=== PATIENT | male | born 1955 | race Caucasian/White ===

== ENCOUNTER 2016-10-20 12:45 | Emergency (ER) | payer OTHER ==
[~2016-10-20] VITALS: Ht 172.7 cm; Wt 73.0 kg
[~2016-10-20 12:45] MED LIST: IBUP-1542 PO; ULT50 PO
[2016-10-20 12:54] VITALS: Ht 172.7 cm; Wt 73.0 kg
[2016-10-20] MEDS ORDERED: IBUP-1542 PO (15:04)
--- NOTE | 2016-10-20 15:11 | ERD ---
ER Documentation Chief Complaint Date/Time DATE: 10/20/16 TIME: 15:05 Chief Complaint LEFT BIG TOE INJURY DUE TO TRAUMA HPI Patient is a 60-year-old male who presents to the emergency department with left big toe pain status post trauma. Patient states yesterday he was moving a table when he accidentally backed it into his left big toe. Patient states that part of this toenail did broke off. She reports minimal bleeding which is now resolved. Patient reports previous history of trauma and toenail removal to affected extremity. Patient states his current pain level is a 6 out of 10, his pain is worse with movement. Patient states that he did take ibuprofen last at which did alleviate his pain. Patient is able to ambulate without any difficulty. Patient denies any numbness, tingling, fever, chills, nausea, vomiting, chest pain, shortness of breath. ROS All systems reviewed and are negative except as per history of present illness. Medications Home Meds Active Scripts Ibuprofen* (Ibuprofen*) 600 Mg Tablet, 600 MG PO Q6, #20 TAB Prov:CAITLYN JON PA-C 10/20/16 Ibuprofen* (Motrin*) 600 Mg Tab, 600 MG PO Q6H Y for PAIN AND OR ELEVATED TEMP, #30 TAB Prov:[facility] 12/01/15 Tramadol HCl (Tramadol HCl) 50 Mg Tab, 50 MG PO Q6 Y for PAIN, #20 TAB Prov:ANABELLE BERNAL 04/02/15 Allergies Allergies: Coded Allergies: Penicillins (Verified Allergy, Intermediate, RASH, 10/20/16) PMhx/Soc History of Surgery: Yes (Inguinal Hernia Repair) Anesthesia Reaction: No Hx Neurological Disorder: No Hx Respiratory Disorders: No Hx Cardiac Disorders: Yes (CAD, HTN) Hx Psychiatric Problems: Yes (DEPRESSION) Hx Miscellaneous Medical Probl: No Hx Alcohol Use: Yes ("CLEAN AND SOBER 9 YEARS") Hx Substance Use: No Hx Tobacco Use: Yes (30 CIGS/DAY) Smoking Status: Current every day smoker FmHx Family History: No diabetes Physical Exam Vitals Vital Signs Date Time Temp Pulse Resp B/P Pulse Ox O2 Delivery O2 Flow Rate FiO2 10/20/16 16:33 97.9 84 20 118/62 98 Room Air 10/20/16 12:54 98.1 66 18 121/68 98 Physical Exam GENERAL: Well-developed, well-nourished male. Appears in no acute distress. HEAD: Normocephalic, atraumatic. EYES: Pupils are equally reactive bilaterally. EOMs grossly intact. No conjunctival erythema. ENT: Moist mucous membranes. No uvula deviation. No kissing tonsils. NECK: Supple. No lymphadenopathy or thyromegaly. No meningismus. LUNG: Clear to auscultation bilaterally. No rhonchi, wheezing, rales or coarse breath sounds. HEART: Regular rate and rhythm. No murmurs, rubs or gallops. EXTREMITIES: Equal pulses bilaterally. No peripheral clubbing, cyanosis or edema. No unilateral leg swelling. NEUROLOGIC: Alert and oriented. Moving all four extremities without any difficulty. Normal speech. Steady gait. SKIN: Normal color. Warm and dry. No rashes or lesions. LEFT FOOT: No deformity, erythema, ecchymosis. Minimal swelling of left big toe. Skin intact. Full ROM of all toes, ankle and knee. No crepitus. Tender to palpation of distal aspect of the toe. Non tender to palpation of mid foot, ankle, calf or knee. Sensation intact to light touch. Neurovascularly intact. ( Able to plantarflex, dorsiflex, myah foot, invert foot, raise big toe.) 2+ DP and DT pulses. Big toenail broken off, proximal aspect intact. No bleeding or discharge noted. Procedures/MDM ED COURSE: The patient was stable throughout ED course. I kept the patient and/or family informed of laboratory and diagnostic imaging results throughout the ED course. DIAGNOSTIC IMAGING: Read by radiologist. DIAGNOSTIC IMAGING REPORT Patient: ROGELIO NGUYEN : 1955 Age: 60 Sex: M MR #: [id number] DOS: 10/20/16 1503 Ordering MD: CAITLYN JON PA-C Location: [facility] Room/Bed: PROCEDURE: XR Left foot. CLINICAL INDICATION: Left foot pain, great toe TECHNIQUE: Three views of the left foot were obtained. COMPARISON: No prior studies are available for comparison. FINDINGS: There is no acute fracture or dislocation. Alignment is normal. Mild degenerative changes at the first metatarsophalangeal joint are noted. Visualized soft tissues are grossly unremarkable. IMPRESSION: 1. No radiographic evidence of acute osseous abnormality. 2. Mild degenerative changes at the first metatarsophalangeal joint. RPTAT: UU .Tay Guerra MD, MD Date Time Electronically viewed and signed by .Tay Guerra MD, on 10/20/2016 15: 41 .K/ CC: CAITLYN JON PA-C MEDICAL DECISION MAKING: This is a 60-year-old male presents with left big toe pain status post accidentally hitting it with a table while moving. Vital signs were reviewed. Patient was afebrile. Xrays showed no radiographic evidence of acute osseous abnormality. Mild degenerative changes at the first metatarsophalangeal joint. Given these findings, the patients presentation is most consistent with toe contusion vs mild degenerative changes of first MTP joint. I have a much lower clinical concern for ankle fracture, tarsal bone fracture, metatarsal fracture, phalangeal fracture, stress fracture, lisfranc injury, gout, septic joint, DVT, compartment syndrome, plantar fasciitis, diabetic neuropathy. At this time, unable to rule out any tendon and ligament injuries. Patient will need to see an industrial training specialist for further management if his pain persists. Patient will need to see a plate conditioner for toe nail removal. PRESCRIPTIONS: Ibuprofen DISCHARGE: At this time, patient is stable for discharge and outpatient management. RICE therapy and ROM exercises were advised to avoid stiffness. I have instructed the patient to follow-up with his/her primary care physician in 1-2 days. I have discussed with the patient the possibility of needing to see an industrial training specialist for further workup and imaging if the pain persists. I have instructed the patient to promptly return to the ER for any new or worsening symptoms including increased pain, swelling, redness, warmth or fever. The patient and/or family expressed understanding of and agreement with this plan. All questions were answered. Home care instructions were provided. Departure Diagnosis: Primary Impression: Injury of toe Encounter type: initial encounter Laterality: left Qualified Code: S99.922A - Injury of toe, left, initial encounter Condition: Stable Patient Instructions: Sprain Toe Referrals: DOCTOR,NOT ON STAFF (PCP) COMM[facility] YOU HAVE RECEIVED A MEDICAL SCREENING EXAM AND THE RESULTS INDICATE THAT YOU DO NOT HAVE A CONDITION THAT REQUIRES URGENT TREATMENT IN THE EMERGENCY DEPARTMENT. FURTHER EVALUATION AND TREATMENT OF YOUR CONDITION CAN WAIT UNTIL YOU ARE SEEN IN YOUR DOCTORS OFFICE WITHIN THE NEXT 1-2 DAYS. IT IS YOUR RESPONSIBILITY TO MAKE AN APPOINTMENT FOR FOLOW-UP CARE. IF YOU HAVE A PRIMARY DOCTOR --you should call your primary doctor and schedule an appointment IF YOU DO NOT HAVE A PRIMARY DOCTOR YOU CAN CALL OUR PHYSICIAN REFERRAL HOTLINE AT IF YOU CAN NOT AFFORD TO SEE A PHYSICIAN YOU CAN CHOSE FROM THE FOLLOWING [facility] [address] [facility]. [facility] [address] [facility]. [facility] [address] [facility] [facility] [address] [facility] [facility] [address] [facility]. [facility] [address] [facility]. [facility] YOU HAVE RECEIVED A MEDICAL SCREENING EXAM AND THE RESULTS INDICATE THAT YOU DO NOT HAVE A CONDITION THAT REQUIRES URGENT TREATMENT IN THE EMERGENCY DEPARTMENT. FURTHER EVALUATION AND TREATMENT OF YOUR CONDITION CAN WAIT UNTIL YOU ARE SEEN IN YOUR DOCTORS OFFICE WITHIN THE NEXT 1-2 DAYS. IT IS YOUR RESPONSIBILITY TO MAKE AN APPOINTMENT FOR FOLOW-UP CARE. IF YOU HAVE A PRIMARY DOCTOR --you should call your primary doctor and schedule and appointment IF YOU DO NOT HAVE A PRIMARY DOCTOR YOU CAN CALL OUR PHYSICIAN REFERRAL HOTLINE AT . IF YOU CAN NOT AFFORD TO SEE A PHYSICIAN YOU CAN CHOSE FROM THE FOLLOWING [facility] INSTITUTIONS: [facility] [address] [place] [address] [facility] [address] [place] [address] [facility] [address] [place] [address] [facility] Hours: Mon-Fri 9:00 AM - 5:00 PM Additional Instructions: Call your primary care doctor TOMORROW for an appointment during the next 1-2 days.See the doctor sooner or return here if your condition worsens before your appointment time. CAITLYN JON PA-C Oct 20, 2016 15:11
--- NOTE | 2016-10-20 15:41 | RADRPT ---
PROCEDURE: XR Left foot. CLINICAL INDICATION: Left foot pain, great toe TECHNIQUE: Three views of the left foot were obtained. COMPARISON: No prior studies are available for comparison. FINDINGS: There is no acute fracture or dislocation. Alignment is normal. Mild degenerative changes at the first metatarsophalangeal joint are noted. Visualized soft tissues are grossly unremarkable. IMPRESSION: 1. No radiographic evidence of acute osseous abnormality. 2. Mild degenerative changes at the first metatarsophalangeal joint. RPTAT: UU .Tay Guerra MD, MD Date Time Electronically viewed and signed by .Tay Guerra MD, on 10/20/2016 15:41 .K/
[2016-10-20 16:33] VITALS: BP 118/62; PULSE 84; RESP 20; TEMP 97.9
== END 2016-10-20 16:27 | disposition home or self-care (01) ==
LOC: FTE 12:45
DX: S99.922A Unspecified injury of left foot, initial encounter (principal); F17.210 Nicotine dependence, cigarettes, uncomplicated; I10 Essential (primary) hypertension; I25.10 Atherosclerotic heart disease of native coronary artery without angina pectoris; W22.03XA Walked into furniture, initial encounter; Y92.9 Unspecified place or not applicable
CPT/HCPCS: 73630; Z7502

== ENCOUNTER 2016-10-28 12:33 | Emergency (ER) | payer OTHER ==
[~2016-10-28] VITALS: Ht 172.7 cm; Wt 74.0 kg
[~2016-10-28 12:33] MED LIST changes: +TRAM50TA2 PO; -ULT50 PO
[2016-10-28 12:35] VITALS: Ht 172.7 cm; Wt 74.0 kg
--- NOTE | 2016-10-28 13:07 | ERD ---
ER Documentation Chief Complaint Date/Time DATE: 10/28/16 TIME: 12:53 Chief Complaint left 3rd finger swelling x 3 days HPI 60 y/o male presents to ED for left middle/long finger distal swelling and pain for 3 days. Denies headache, loss of consciousness, dizziness, blurry vision, changes in vision, photophobia, facial pain, ear pain, throat pain, difficulty swallowing, neck pain, shoulder pain, chest pain, cough, hemoptysis, abdominal pain, back pain, loss of appetite, nausea, vomiting, hematochezia, diarrhea, constipation, urinary symptoms, bladder and bowel incontinences, extremity weakness, extremity tenderness, trauma, numbness or tingling sensation, difficulty walking , recent travel, recent exposure to illness, recent antibiotic use in the last 3 months, fever, chills. Allergy: PCN PMH: Hyperlipidemia, hypertension, "mood swings." Medications: Wellbutrin, folic acid, aspirin, atenolol, clonidine, nitro. Surgery: Inguinal hernia repair. Family history: Denies Primary Social History: Retired Smokes about 1 1/2 pack of cigarettes a day. Denies use of alcohol, use of illegal drugs. ROS All systems reviewed and are negative except as per history of present illness. Medications Home Meds Active Scripts Ibuprofen* (Ibuprofen*) 600 Mg Tablet, 600 MG PO Q6, #20 TAB Prov:CAITLYN JON PA-C 10/20/16 Ibuprofen* (Motrin*) 600 Mg Tab, 600 MG PO Q6H Y for PAIN AND OR ELEVATED TEMP, #30 TAB Prov:[facility] STAFFING DIRECTOR 12/01/15 Tramadol HCl (Tramadol HCl) 50 Mg Tab, 50 MG PO Q6 Y for PAIN, #20 TAB Prov:ANABELLE BERNAL 04/02/15 Allergies Allergies: Coded Allergies: Penicillins (Verified Allergy, Intermediate, RASH, 10/20/16) PMhx/Soc History of Surgery: Yes (Inguinal Hernia Repair) Anesthesia Reaction: No Hx Neurological Disorder: No Hx Respiratory Disorders: No Hx Cardiac Disorders: Yes (CAD, HTN) Hx Psychiatric Problems: Yes (DEPRESSION) Hx Miscellaneous Medical Probl: No Hx Alcohol Use: Yes ("CLEAN AND SOBER 9 YEARS") Hx Substance Use: No Hx Tobacco Use: Yes (30 CIGS/DAY) FmHx Denies Physical Exam Vitals Vital Signs Date Time Temp Pulse Resp B/P Pulse Ox O2 Delivery O2 Flow Rate FiO2 10/28/16 12:35 97.7 76 16 123/60 98 Physical Exam CONSTITUTIONAL: Well-appearing; well-nourished; in no apparent distress. HEAD: Normocephalic; atraumatic. EYES: Conjunctiva clear, sclera non-icteric, EOM intact. PERRL Ears: Hearing intact. EACs clear, TMs non-bulging, non-inflamed, translucent & mobile, ossicles normal appearance, No obstructions, no erythema, no discharges Nose: No obstructions. No polyps. No external lesions. Mucosa non-inflamed. No external lesions, septum and turbinates normal. No rhinorrhea. No discharges. Frontal sinus is non-tender to palpation. Maxillary sinus is non-tender to palpation. MOUTH: Moist mucous membranes, no lesion, no obstructions, no vesicles, no thrush, patent airway Throat: Uvula in midline. Right tonsil is +1 with no erythema, no exudate. Left tonsil is +1 with no erythema, no exudate. Tolerating secretions well. Good gag reflex. Patent airway. Neck: Supple, without lesions, bruits, or adenopathy. No mass. Thyroid non- enlarged and non-tender to palpation. CHEST: Symmetrical chest. Respirations even and not labored. No retractions noted. CARDIOVASCULAR: Normal S1, S2. RRR. No murmurs, gallops. RESPIRATORY: Normal chest excursion with respiration; breath sounds clear and equal bilaterally; no wheezes, rhonchi, or rales. Breathing even and unlabored. Speaking in clear, full, and complete sentences w/ ease. ABDOMEN: Normal bowel sounds normal. Soft, round, non-distended, non-guarding, no tenderness, no rebound, no organomegaly, no masses, no pulsating abdominal mass. No hernia. No peritoneal signs. : No CVA tenderness. BACK: Symmetrical shoulder. Spine is midline without deformity, tenderness. No evidence of trauma or deformity. PELVIS: Stable pelvis. No evidence of trauma or deformity. MUSCULOSKELETAL: Normal gait and station. No misalignment, asymmetry, crepitation, defects, tenderness, masses, effusions, decreased range of motion, instability, atrophy or abnormal strength or tone in the head, neck, spine, ribs , pelvis or extremities. No calf tenderness. NEUROVASCULAR: Distal pulses are present. Pedal pulse are present, equal, and normal. Capillary refills are < 2 seconds. NEUROLOGIC: Alert and oriented x4. Speaks full and clear sentences. Cranial Nerves II-XII normal. Sensation to pain, touch, and proprioception normal. Grossly unremarkable. No neurologic deficits. Romberg test is negative. PSYCHOLOGICAL: The patients mood and manner are appropriate. No hallucinations , delusions. Not SI. Not HI. Has the capacity to decide for self SKIN: Normal for age and ethnicity; warm; dry; good turgor; no apparent lesions or exudates. No rashes, hives, discoloration. Intact. Left middle/long finger distal mild swelling with tenderness to dorsal area; volar area has no redness/discoloration/herpetic angelina. Has good flexion and extension. No signs of trauma. Skin is intact. Circulation and sensation is intact. No neurovascular deficits. Procedures/MDM Examination: Unremarkable examination except left middle/long finger distal mild swelling with tenderness to dorsal area; volar area has no redness/ discoloration/herpetic angelina. Has good flexion and extension. No signs of trauma. Skin is intact. Circulation and sensation is intact. No neurovascular deficits. Disease process, medical treatment was explained to the patient and family member. They verbalized understanding and agreed with the medical treatment, and follow-up care. Consultation: None Differential diagnosis: Flexor tenosynovitis versus felon versus cellulitis Medical decision [id number] y/o male presents to ED for left middle/long finger distal swelling and pain for 3 days. Has no evidence of Kanavel sign, low suspicion for flexor tenosynovitis. Final diagnosis of cellulitis. Medications prescribed are the following: Bactrim Patient and family member are made aware of the side effects and adverse reactions of the medications prescribed. Instructed on when to seek emergent and medical attention in case allergic/anaphylactic reactions or severe side effects and or adverse reactions to medications. Patient and family member verbalized understanding. Patient was also instructed for warm compresses to site. Verbalized understanding. Patient instructed Instructed to follow-up with his PCP in 24-48 hours. Back in the emergency room in 2 days for re-evaluation. Instructed to Call 911 for chest pain, shortness of breath. Advised to come back here in ED as soon as possible for severity of symptoms which includes but not limited to: any new symptoms; shortness of breath/difficulty of breathing; cardiovascular changes; severe gastrointestinal symptoms; signs and symptoms of bleeding and or infection; signs of compartment syndrome/neurovascular changes; neurological changes/deficits. Patient and family member verbalized understanding. Upon discharge, patient is alert and oriented x 4, speaks full and clear sentences, denies pain, has no neurological deficits, has no neurovascular deficits, difficulty of breathing. Breathing even and unlabored. Lung sounds are clear to auscultation. Not in distress. Appears comfortable. Ambulatory with steady gait. Appears satisfied with care provided here in ED. Departure Condition: Good Additional Instructions: Patient instructed Instructed to follow-up with his PCP in 24-48 hours. Back in the emergency room in 2 days for re-evaluation. Instructed to Call 911 for chest pain, shortness of breath. Advised to come back here in ED as soon as possible for severity of symptoms which includes but not limited to: any new symptoms; shortness of breath/difficulty of breathing; cardiovascular changes; severe gastrointestinal symptoms; signs and symptoms of bleeding and or infection; signs of compartment syndrome/neurovascular changes; neurological changes/deficits. Patient and family member verbalized understanding. SYLVIE NEGRETE Oct 28, 2016 13:06
[2016-10-28] MEDS ORDERED: BACTDS PO (13:09)
== END 2016-10-28 13:30 | disposition home or self-care (01) ==
LOC: FTE 12:33
DX: M79.89 Other specified soft tissue disorders (principal); I10 Essential (primary) hypertension; F17.210 Nicotine dependence, cigarettes, uncomplicated; I25.10 Atherosclerotic heart disease of native coronary artery without angina pectoris
CPT/HCPCS: 99283